=== PATIENT | female | born 1945 | race Caucasian/White ===

== ENCOUNTER → 2024-06-17 13:02 | Outpatient (REF) | payer MEDICARE, OTHER, SELFPAY | LOC: HWRAD 13:02 | PROVIDERS: ATTENDING PHYSICIAN Nurse Practitioner; FAMILY PHYSICIAN Family Medicine | DX: R05.3 Chronic cough (principal); R63.4 Abnormal weight loss; R14.2 Eructation | CPT/HCPCS: 74177; Q9967 ==

== ENCOUNTER → 2024-11-15 10:09 | Outpatient (REF) | payer MEDICARE, OTHER, SELFPAY | LOC: HWWDC 10:09 | PROVIDERS: ATTENDING PHYSICIAN Obstetrics & Gynecology; FAMILY PHYSICIAN Family Medicine | DX: M85.88 Other specified disorders of bone density and structure, other site (principal); Z12.31 Encounter for screening mammogram for malignant neoplasm of breast | CPT/HCPCS: 77080 ==